=== PATIENT | female | born 1985 | race American Indian/Alaskan Native ===

== ENCOUNTER 2018-03-14 08:59 | Emergency (ER) | payer MEDICAID ==
[2018-03-14 09:15] VITALS: BP 116/70
[2018-03-14] MEDS ORDERED: Ketorolac 60 MG/2 ML SDV IM ONE (09:41)
[2018-03-14 09:53] LABS: CHLORIDE,CL 103 mEq/L (98-106); SODIUM,NA 136 mEq/L (136-145)
[2018-03-14] MEDS ORDERED: cefTRIAXone 1 GM Vial IM ONE (11:36)
[2018-03-14] MEDS ORDERED: methylPREDNISolone Sodium Succinate 125 MG/2 ML SDV IM ONE (11:37)
[2018-03-14] MEDS ORDERED: Lidocaine 1% 30 ML SDV INJECT ONE (11:41)
--- NOTE | 2018-03-14 11:42 | EDM.PDOC ---
ED HPI GENERAL MEDICAL PROBLEM - General Chief Complaint: ENT Problem Stated Complaint: PIECE OF JEWNIRMALAY STUCK IN HER EAR AND SOB Time Seen by Provider: 03/14/18 09:18 Source of Information: Reports: Patient History Limitations: Reports: No Limitations - History of Present Illness INITIAL COMMENTS - FREE TEXT/NARRATIVE: Patient presents today with complaints of left ear pain. Patient has been having issues with her left ear now for over week. Was initially seen in [place] as had ear pain and was concerned that she had part of her cartilage piering in the canal. Did not have anything removed at that visit and was started on Omnicef. I did see patient again on Monday at clinic here. She had a significant amount of purulent drainage in her left ear canal and erythema and swelling around her left ear. Was given Rocephin and started on Augmentin. She states the ear has quit draining but the pain and swelling seems to be extending down her jaw and neck. She has not used many pain pills as she doesn't like to take meds like that if she doesn't have to. Now having more of a problem opening and closing her mouth. 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: Acetaminophen, NSAIDS, Other Medication(s) ( hydrocodone when needed) Left Ear Pain Score (Numeric/FACES): 8 - Related Data Allergies Allergy/AdvReac Type Severity Reaction Status Date / Time amoxicillin AdvReac Other Verified 01/14/18 16:09 Penicillins AdvReac Other Verified 01/14/18 16:09 Home Meds: Home Meds Ascorbic Acid [C-1000] 1,000 mg PO DAILY 01/03/18 [History] Cranberry 1,000 mg PO DAILY 01/03/18 [History] Acetaminophen/oxyCODONE [Percocet 325-5 MG] 1 tab PO ASDIRECTED PRN 01/14/18 [ History] Amoxicillin/Clavulanate K [Augmentin 875-125 MG] 1 tab PO BID 01/14/18 [History] Ibuprofen 400 mg PO ASDIRECTED PRN 01/14/18 [History] Past Medical History - Past Health History Medical/Surgical History: Denies Medical/Surgical History HEENT History: Reports: Impaired Vision, Other (See Below) Other HEENT History: wears glasses Cardiovascular History: Reports: None Respiratory History: Reports: None Gastrointestinal History: Reports: Bowel Obstruction, Diverticulosis Genitourinary History: Reports: UTI, 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: Dysfunctional Uterine Bleeding, Other (See Below) Other OB/BYN History: ovarian cysts Musculoskeletal History: Reports: None Neurological History: Reports: None Psychiatric History: Reports: None Endocrine/Metabolic History: Reports: None Hematologic History: Reports: None Immunologic History: Reports: None Oncologic (Cancer) History: Reports: None Dermatologic History: Reports: Other (See Below) Other Dermatologic History: acne - Infectious Disease History Infectious Disease History: Reports: Chicken Pox - Past Surgical History Head Surgeries/Procedures: Reports: None HEENT Surgical History: Reports: Tonsillectomy, Other (See Below) Other HEENT Surgeries/Procedures: wisdom teeth Respiratory Surgical History: Reports: None GI Surgical History: Reports: Colon, Colonoscopy Other GI Surgeries/Procedures: removed"a foot of stool" 3 years ago Female Surgical History: Reports: None Other Female Surgeries/Procedures: ovarian cysts Neurological Surgical History: Reports: None Musculoskeletal Surgical History: Reports: None Social & Family History - Family History Family Medical History: Noncontributory - Tobacco Use Smoking Status *Q: Never Smoker - Caffeine Use Caffeine Use: Reports: None - Recreational Drug Use Recreational Drug Use: No - Living Situation & Occupation Living situation: Reports: with Family ED ROS ENT - Review of Systems Review Of Systems: See Below Constitutional: Denies: Fever, Chills, Malaise, Weakness HEENT: Reports: Ear Pain, Other (jaw and neck pain). Denies: Ear Discharge, Rhinitis, Sinus Problem, Throat Swelling Respiratory: Reports: No Symptoms Cardiovascular: Reports: No Symptoms Endocrine: Reports: No Symptoms GI/Abdominal: Reports: No Symptoms : Reports: No Symptoms Musculoskeletal: Reports: No Symptoms Skin: Reports: Erythema Neurological: Reports: No Symptoms ED EXAM, ENT - Physical Exam Exam: See Below Exam Limited By: No Limitations General Appearance: Alert, WD/WN, No Apparent Distress Ears: Auricular Erythema, Auricular Tenderness, Canal Discharge (left ear canal has a mild amount of redness, much improved since Monday. Very little discharge noted in canal. acid tender with exam. No foreign object noted) Nose: Normal Inspection, Normal Mucousa, No Blood Mouth/Throat: Normal Inspection, Normal Oropharynx Head: Normocephalic Neck: Lymphadenopathy (L), Other (tender to left jaw and neck) Respiratory/Chest: No Respiratory Distress, Lungs Clear, Normal Breath Sounds Cardiovascular: Regular Rate, Rhythm GI/Abdominal: Normal Bowel Sounds, Soft, Non-Tender Neurological: Alert, Oriented Course - Vital Signs Last Recorded V/S: Last Vital Signs Temp 97.1 F 03/14/18 09:12 Pulse 90 03/14/18 09:12 Resp 20 03/14/18 09:12 BP 116/70 03/14/18 09:12 Pulse Ox - Orders/Labs/Meds Orders: Active Orders 24 hr Category Date Time Status Soft Tissue Neck w Cont [CT] Stat Exams 03/14/18 09:31 Taken Labs: Laboratory Tests 03/14/18 03/14/18 03/14/18 Range/Units 09:35 09:35 09:35 WBC 8.4 (5.0-10.0) 10^3/uL RBC 4.41 (4.00-5.50) 10^6/uL Hgb 13.2 (12.0-16.0) g/dL Hct 40.0 (37.0-47.0) % MCV 90.7 (82.0-94.0) fL MCH 29.9 (27.0-32.0) pg MCHC 33.0 (33.0-38.0) g/dL RDW Coeff of Flor 13.5 (11.0-15.0) % Plt Count 289 (150-400) 10^3/uL Neut % (Auto) 62.9 (35-85) % Lymph % (Auto) 24.3 (10-55) % [place] % (Auto) 8.9 (0-16) % Eos % (Auto) 3.3 (0-5) % Baso % (Auto) 0.6 (0-3) % Neut # (Auto) 5.27 (1.80-7.00) 10^3/uL Lymph # (Auto) 2.04 (1.00-4.80) 10^3/uL [place] # (Auto) 0.75 (0.00-0.80) 10^3/uL Eos # (Auto) 0.28 (0.00-0.45) 10^3/uL Baso # (Auto) 0.05 10^3/uL Sodium 136 (136-145) mEq/L Potassium 4.2 (3.5-5.0) mEq/L Chloride 103 (98-106) mEq/L Carbon Dioxide 27 (21-32) mmol/L BUN 11 (7-18) mg/dL Creatinine 0.8 (0.6-1.0) mg/dL Est Cr Clr Drug Dosing 99.08 mL/min Estimated GFR (MDRD) > 60 (>=60) mL/min Glucose 195 H (75-99) mg/dL Calcium 8.7 (8.4-10.1) mg/dL C-Reactive Protein 1.7 H (0.2-0.8) mg/dL HCG, Qual Negative Meds: Medications Discontinued Medications Generic Name Dose Route Start Last Admin Trade Name Freq PRN Reason Stop Dose Admin Ceftriaxone Sodium 1 gm 03/14/18 11:36 03/14/18 11:50 Rocephin IM 03/14/18 11:37 1 gm ONETIME ONE Administration Ketorolac Tromethamine 60 mg 03/14/18 09:41 03/14/18 10:59 Toradol IM 03/14/18 09:42 60 mg ONETIME ONE Administration Lidocaine HCl 2.1 ml 03/14/18 11:41 03/14/18 11:50 Xylocaine-Mpf 1% INJECT 03/14/18 11:42 Not Given ONETIME ONE Lidocaine HCl 20 ml 03/14/18 11:46 03/14/18 11:52 Xylocaine 1% INJECT 03/14/18 11:47 20 ml ONETIME ONE Administration Methylprednisolone Sodium Succinate 125 mg 03/14/18 11:37 03/14/18 11:51 Solu-Medrol IM 03/14/18 11:38 125 mg NOW ONE Administration - Re-Assessments/Exams Free Text/Narrative Re-Assessment/Exam: 03/14/18 11:38 CT scan shows mild inflammation to the external ear canal, no abscess. Noted parotid lymphadenopathy. Departure - Departure Time of Disposition: 11:39 Disposition: Home, Self-Care 01 Condition: Fair Clinical Impression: Otitis externa, Facial cellulitis - Discharge Information Forms: ED Department Discharge Additional Instructions: 1. Rest 2. Push fluids 3. Continue Augmentin 4. Heat or ice to the affected area 5. Keep ENT appointment unless improves fully 6. Call with any questions - My Orders Last 24 Hours: My Active Orders 03/14/18 09:31 Soft Tissue Neck w Cont [CT] Stat - Assessment/Plan Last 24 Hours: My Active Orders 03/14/18 09:31 Soft Tissue Neck w Cont [CT] Stat
[2018-03-14] MEDS ORDERED: Lidocaine 1% 20 ML MDV INJECT ONE (11:46)
== END 2018-03-14 12:05 | disposition home or self-care (01) ==
LOC: CC.ED 08:59
DX: H60.92 Unspecified otitis externa, left ear (principal); L03.211 Cellulitis of face; Z88.1 Allergy status to other antibiotic agents; Z88.0 Allergy status to penicillin; Z79.899 Other long term (current) drug therapy
CPT/HCPCS: 36415; 70491; 80048; 84703; 85025; 86140; 96372; 99283; J0696; J1885; J2930; Q9967